=== PATIENT | female | born 1965 | race Caucasian/White ===

== ENCOUNTER 2016-08-15 03:37 | Emergency (ER) | payer BC ==
[2016-08-15] MEDS ORDERED: Morphine INJ* 2 MG/ML 1 ML SYRINGE IV ONE (04:03)
[2016-08-15] MEDS ORDERED: Ondansetron INJ* 2 MG/ML VIAL IV ONE (04:03)
[2016-08-15] MEDS ORDERED: NS 0.9% 1000 ML* 1,000 ML IV ONE (04:03)
[2016-08-15 04:51] LABS: Hematocrit 38 % (35-47); Hemoglobin 12.8 g/dl (12.0-16.0); Mean Corpuscular HGB Conc 33 g/dl (31-36); Mean Corpuscular Hemoglobin 31 pg (27-31); Mean Corpuscular Volume 94 fL (80-97); Mean Platelet Volume 8 um3 (7.4-10.4); Red Cell Distribution Width 13 % (10.5-15); White Blood Count 5.6 10^3/ul (3.5-10.8)
[2016-08-15 05:02] LABS: Albumin 4.5 g/dL (3.2-5.2); BUN/Creatinine Ratio 22.2 (8-20); C Reactive Protein 1.03 mg/L (< 5.00); Calcium 9.1 mg/dL (8.6-10.3); EGFR African American 95.5 (>60); EGFR Non-African American 74.3 (>60); Globulin 2.4 g/dL (2-4); Magnesium 2.1 mg/dL (1.9-2.7); Potassium 3.2 mmol/L (3.5-5.0); Total Bilirubin 0.3 mg/dL (0.2-1.0); Total Protein 6.9 g/dL (6.4-8.9)
[2016-08-15 05:30] VITALS: BP 116/78
[2016-08-15 05:30] LABS: Urine Bilirubin Negative (Negative); Urine Glucose Negative (Negative); Urine Nitrite Negative (Negative)
== END 2016-08-15 05:31 | disposition home or self-care (01) ==
LOC: ED 03:37
DX: R11.2 Nausea with vomiting, unspecified (principal); R51 Headache; Z98.890 Other specified postprocedural states
CPT/HCPCS: 36415; 80053; 81003; 83605; 83690; 83735; 84484; 85025; 86140; 93005; 96374; 96375; 99282; J2270; J2405

== ENCOUNTER 2017-05-02 15:07 | Observation (INO) | payer OTHER ==
[2017-05-02 15:44] LABS: ABS Basophils 0.1 10^3/ul (0-0.2); ABS Eosinophils 0.1 10^3/ul (0-0.6); ABS Lymphocytes 2.4 10^3/ul (1.0-4.8); ABS Monocytes 0.5 10^3/ul (0-0.8); ABS Neutrophils 3.7 10^3/ul (1.5-7.7); ABS Nucleated RBC 0 10^3/ul; Eosinophil % 1.9 % (0-6); Hematocrit 42 % (35-47); Hemoglobin 14.3 g/dl (12.0-16.0); Lymphocyte % 35.8 % (25-47); Mean Corpuscular HGB Conc 34 g/dl (31-36); Mean Corpuscular Hemoglobin 32 pg (27-31); Mean Corpuscular Volume 93 fL (80-97); Mean Platelet Volume 7 um3 (7.4-10.4); Nucleated Red Blood Cells % 0.1; Platelet Count 321 10^3/ul (150-450); Red Blood Count 4.49 10^6/ul (4.0-5.4); Red Cell Distribution Width 12 % (10.5-15); White Blood Count 6.8 10^3/ul (3.5-10.8)
[2017-05-02 16:00] LABS: INR 0.94 (0.77-1.02)
[2017-05-02 16:13] LABS: EGFR Non-African American 63.1 (>60)
--- NOTE | 2017-05-02 16:35 | RAD ---
HISTORY: Shortness of breath and chest pain COMPARISONS: August 29, 2015 VIEWS: 4: Frontal dual-energy and lateral views of the chest. FINDINGS: CARDIOMEDIASTINAL SILHOUETTE: The cardiomediastinal silhouette is normal. HARRIET: The harriet are normal. PLEURA: The costophrenic angles are sharp. No pleural abnormalities are noted. LUNG PARENCHYMA: There is hyperinflation with flattening of the diaphragm and expansion of the retrosternal airspace. ABDOMEN: The upper abdomen is clear. There is no subphrenic gas. BONES AND SOFT TISSUES: No bone or soft tissue abnormalities are noted. OTHER: None. IMPRESSION: HYPERINFLATION, WHICH CAN BE SEEN WITH COPD OR REACTIVE AIRWAY DISEASE. NO ACTIVE CARDIOPULMONARY DISEASE.
[2017-05-02] MEDS ORDERED: Iohexol 350* (CONTRAST) 500 ML MDV IV ONE (17:00)
--- NOTE | 2017-05-02 17:22 | ECHO ---
Patient: AYAN ESOCBAR [facility] Rec#: [id number] : 1965 Date: 05/02/2017 Age: 51y Height: 167.64 cm / 66.0 in Weight: 75.75 kg / 167.0 lbs Sex: F BSA: 1.85 Room#: ED 3 Admit Date#: 05/02/2017 Type: Outpatient Referring: Luis Centeno Reading: Roc Verma MD Laboratory Clerk: Fallon Cuellar RDCS,RDMS CC: Ryne Bhandari MD Transthoracic Echocardiogram Indication: CP BP: 118/86 HR: 79 Rhythm: NSR Findings History: HLD, smoker, PE Technical Comments: The study quality is good. Left Ventricle: The left ventricular chamber size is normal. There is no left ventricular hypertrophy. Left ventricular systolic function is at the lower limits of normal. The estimated ejection fraction is 50-55%. There is no consistent Doppler evidence of clinically significant diastolic dysfunction. Left Atrium: The left atrial chamber size is normal. Right Ventricle: The right ventricle wall thickness is mildly increased. The right ventricular cavity size is normal. The right ventricular global systolic function is normal. Right Atrium: The right atrial cavity size is normal. Aortic Valve: The aortic valve is trileaflet. There is no evidence of aortic valve thickening. Systolic excursion of the aortic valve is normal. There is no evidence of aortic regurgitation. There is no evidence of aortic stenosis. Mitral Valve: The mitral valve leaflets appear normal. There is a trace of mitral regurgitation. There is no evidence of mitral stenosis. Tricuspid Valve: The tricuspid valve leaflets are normal. There is mild tricuspid regurgitation. No pulmonary hypertension is noted. Pulmonic Valve: The pulmonic valve appears normal. There is trace to mild pulmonic regurgitation.dual jets. Pericardium: There is no significant pericardial effusion. Aorta: The aortic root appears normal. There is no dilatation of the aortic arch. Pulmonary Artery: The main pulmonary artery appears normal. Venous: The inferior vena cava appears normal in size. There is a greater than 50% respiratory change in the inferior vena cava dimension. Summary: There was not any prior study for comparison. Conclusions Left ventricular systolic function is at the lower limits of normal. The estimated ejection fraction is 50-55%. There is a trace of mitral regurgitation. There is mild tricuspid regurgitation. There is trace to mild pulmonic regurgitation.dual jets. The right ventricle wall thickness is mildly increased. The right ventricular global systolic function is normal. Measurements Name Value Normal Range RVIDd (AP) 2D 3.1 cm (0.9 - 2.6) RVDdMajor (2D) 2.4 cm (2.2 - 4.4) RAd ISD 4CH 4.3 cm (3.4 - 4.9) RA (A4C)W 3 cm (2.9 - 4.6) IVSd (2D) 0.8 cm (0.6 - 1) LVPWd (2D) 1 cm (0.6 - 1) LVIDd (2D) 4.4 cm (3.6 - 5.4) LVIDs (2D) 3.4 cm - LV FS (2D) 23 % (25 - 45) Aortic Annulus 2.2 cm (1.4 - 2.6) Ao root diameter (2D) 2.9 cm (2.1 - 3.5) Ascending Ao 2.9 cm (2.1 - 3.4) Aortic arch 2.9 cm (1.8 - 3.4) LA dimension (AP) 2D 3.1 cm (2.3 - 3.8) LAd ISD 4CH 4.3 cm (2.9 - 5.3) LA ISD 4CH W 3.6 cm (2.5 - 4.5) Name Value Normal Range LA ESV SP 4CH (A/L) 30.75 ml - LA ESV SP 2CH (A/L) 46.74 ml - LA ESV BP (A/L) 39.19 ml - LA ESV BP (A/L) index 21 ml/m2 - LA ESV SP 4CH (MOD) 28.37 ml - LA ESV SP 2CH (MOD) 42.75 ml - Name Value Normal Range MV E-wave Vmax 0.5 m/sec - MV deceleration time 161 msec - MV A-wave Vmax 0.6 m/sec - MV E:A ratio 0.8 ratio - LV septal e' Vmax 0.07 m/sec - LV lateral e' Vmax 0.08 m/sec - LV E:e' septal ratio 7 ratio - LV E:e' lateral ratio 6 ratio - Name Value Normal Range AV Vmax 1.2 m/sec - AV VTI 23 cm - AV peak gradient 6 mmHg - AV mean gradient 3.2 mmHg - LVOT Vmax 0.8 m/sec - LVOT VTI 15 cm - LVOT peak gradient 2.6 mmHg - LVOT mean gradient 1.3 mmHg - MARY Vmax 0.9 m/sec - Name Value Normal Range TR Vmax 2.3 m/sec - TR peak gradient 21 mmHg - RAP 3 mmHg - RVSP 24 mmHg - IVC diameter 1.6 cm - Name Value Normal Range PV Vmax 0.5 m/sec - PV peak gradient 1 mmHg -
[2017-05-02] MEDS ORDERED: Acetaminophen TAB* 325 MG PO PRN (17:38)
--- NOTE | 2017-05-02 17:38 | RAD ---
HISTORY: Shortness of breath COMPARISONS: October 02, 2007 TECHNIQUE: Multiple contiguous axial CT scans of the chest were obtained after the administration of nonionic intravenous contrast, timed to the pulmonary arterial phase of contrast enhancement.. Coronal and sagittal multiplanar reformations are also submitted for review. FINDINGS: NECK AND THYROID: The lower neck and thyroid are unremarkable. CHEST WALL: There is no lower cervical, axillary, or supraclavicular lymphadenopathy by size criteria. HEART AND PERICARDIUM: The heart is unremarkable. AORTA AND PULMONARY VASCULATURE: There is no pulmonary arterial filling defect to suggest pulmonary embolism. There is no linear filling defect within the aorta to suggest aortic dissection. MEDIASTINUM: There is no mediastinal lymphadenopathy by size criteria. HARRIET: There is no hilar lymphadenopathy by size criteria. AIRWAY AND ESOPHAGUS: The airway is unremarkable, without endobronchial filling defect. The esophagus is grossly normal. LUNG PARENCHYMA: There is stable minimal lingular pleuroparenchymal scarring. PLEURA: No pleural abnormalities are noted. UPPER ABDOMEN: The upper abdomen is unremarkable. BONES AND SOFT TISSUES: The patient is status post anterior cervical fusion. Mild degenerative changes are noted. OTHER: None. IMPRESSION: NO PULMONARY ARTERIAL FILLING DEFECT TO SUGGEST PULMONARY EMBOLISM.
[2017-05-02] MEDS ORDERED: Albuterol HFA INHALER* 8 gm MDI INH PRN (17:44)
[2017-05-02 20:10] LABS: Urine Appearance Clear; Urine Blood Negative (Negative); Urine Color Straw; Urine Ketones Negative (Negative); Urine Protein Negative (Negative); Urine Specific Gravity 1.054 (1.010-1.030); Urine Urobilinogen Negative (Negative)
[2017-05-02] MEDS: Heparin VIAL(*) 5000 UNITS/ML VIAL (FIVE THOUSAND) SUBCUT SCH (21:26)
--- NOTE | 2017-05-02 22:31 | HP ---
CC: Dr. Mccarty; Dr. Sharif * HISTORY AND PHYSICAL: DATE OF ADMISSION: 05/02/17 PRIMARY CARE PROVIDER: Dr. Mccarty. CHIEF COMPLAINT: Shortness of breath. HISTORY OF PRESENT ILLNESS: Consuelo Riley is a 51-year-old female with history of asthma for which she does not use any treatment, although she has prescribed albuterol on a p.r.n. basis. The patient stated that she had mild upper respiratory infection syndrome for approximately a week 3 or 4 weeks ago. Ever since then, she had been mildly short of breath. She stated that her shortness of breath was worsened with exercise approximately a week ago. She was seen by her primary care provider and recommended a followup with Cardiology. She saw Dr. Sharif today and stated that she had exertional chest pain a week ago. She also complained of shortness of breath with exertion. At that point, Dr. Sharif addressed the patient to the emergency department for evaluation and possibility of admission. Here her workup is unremarkable and she is going to be placed on overnight observation with a stress test in the morning. PAST MEDICAL HISTORY: 1. History of asthma. 2. History of PE in the past. 3. History of thoracic spondylosis. 4. History of lower back surgery in 2002. 5. History of C-spine surgery in [address] with a [address] plate in place. MEDICATIONS: Include: 1. Albuterol on a p.r.n. basis. 2. Estroven Multi-Symptom. ALLERGIES: No known drug allergies. FAMILY HISTORY: Positive for father who of pneumonia at the age of 64 and mother who of lung cancer at the age of 63. SOCIAL HISTORY: The patient has history of 30 years of smoking a pack and a half a day and she quit 8 years ago. She denies any drug use and stated that she rarely uses alcohol. 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 She is and her is her surrogate. REVIEW OF SYSTEMS: Please see history of present illness. The patient stated that her shortness of breath occurred when she was moping the floor a week ago. She also stated that that is when her chest pain developed, although she is more vague with describing the chest pain and the duration of it. She stated that she has had problems with shortness of breath with exertion ever since and it is problematic for her to walk up a flight of stairs. All the remaining 12 systems were reviewed with the patient and were otherwise negative. PHYSICAL EXAMINATION GENERAL: The patient is a very pleasant 51-year-old male, who is in no acute distress. Alert, awake, and oriented x3. VITAL SIGNS: Blood pressure of 129/78, heart rate of 74 and regular, respiratory rate 15, oxygen saturation 99% on room air, temperature 98.7. HEENT: Head: Atraumatic, normocephalic. Eyes: Pupils are equal, reactive to light and accommodation. Oropharynx clear. Mucosa moist. NECK: Supple. No JVD. No bruits bilaterally. RESPIRATORY: Clear to auscultation bilaterally. CARDIOVASCULAR: Regular rate and rhythm. No murmur. ABDOMEN: Soft and nontender. Bowel sounds are present in all 4 quadrants. EXTREMITIES: There is no edema. Pulses +2 bilaterally. There is no clubbing or cyanosis. NEURO EVALUATION: Speech clear. Cranial nerves II through XII are grossly intact. Motor strength is 5/5 bilaterally. SKIN: On evaluation of the skin, no ecchymotic areas or rashes noted. DIAGNOSTIC STUDIES/LAB DATA: Laboratory data showed white blood cell count of 6.8, hemoglobin of 14.3, hematocrit of 42, and platelet count of 321,000. Sodium of 139, potassium 4.1, chloride 103, carbon dioxide 29, BUN 17, creatinine 0.93. Liver function tests unremarkable. Troponin of 0. Brain natriuretic peptide was 25. CT angiogram of the chest showed no PE. There was stable minimal lingular parenchymal scarring. The patient's transthoracic echocardiogram showed EF of 50% 55% with trace mitral regurgitation, mild tricuspid regurgitation and the right ventricle wall thickness that is mildly increased. The patient's EKG showed normal sinus rhythm with a heart rate of 71 beats per minute with no ST changes. ASSESSMENT AND PLAN: 1. Exertional chest pain and dyspnea for the past 7 days. The patient is going to be placed on overnight observation. So far, her cardiac workup had been unremarkable. We will follow up with the patient's troponins and a treadmill stress test is going to be ordered in the morning. 2. In regards to the patient's asthma, the patient is not in exacerbation. Albuterol is going to be continued as previously taken. 3. For DVT prophylaxis, the patient is going to be placed on heparin subcutaneous. 5. The patient's code status is full and her surrogate is her . TIME SPENT: Approximately 65 minutes was spent on admission of this patient, more than half of that time was spent [id number] with the patient during the interview and physical exam. [id number]/[facility] #: [id number] ALIE
[2017-05-03 05:27] VITALS: BP 102/62
[2017-05-03] MEDS: Heparin VIAL(*) 5000 UNITS/ML VIAL (FIVE THOUSAND) SUBCUT SCH (05:44)
[2017-05-03 06:47] LABS: ABS Basophils 0.1 10^3/ul (0-0.2); ABS Eosinophils 0.2 10^3/ul (0-0.6); ABS Lymphocytes 2.9 10^3/ul (1.0-4.8); ABS Monocytes 0.6 10^3/ul (0-0.8); ABS Neutrophils 3.1 10^3/ul (1.5-7.7); ABS Nucleated RBC 0 10^3/ul; Eosinophil % 2.7 % (0-6); Hematocrit 40 % (35-47); Hemoglobin 13.6 g/dl (12.0-16.0); Lymphocyte % 43.2 % (25-47); Mean Corpuscular HGB Conc 34 g/dl (31-36); Mean Corpuscular Hemoglobin 32 pg (27-31); Mean Corpuscular Volume 93 fL (80-97); Mean Platelet Volume 7 um3 (7.4-10.4); Nucleated Red Blood Cells % 0; Platelet Count 316 10^3/ul (150-450); Red Blood Count 4.27 10^6/ul (4.0-5.4); Red Cell Distribution Width 12 % (10.5-15); White Blood Count 6.8 10^3/ul (3.5-10.8)
--- NOTE | 2017-05-03 11:26 | RAD ---
Edited for charges. INDICATION: Chest pain. COMPARISON: There are no prior studies available for comparison. Technique: A single day myocardial perfusion stress study was performed. Initially a resting study was performed. The patient was given an intravenous injection of 10.9 mCi of technetium 99m tetrofosmin and and the heart was imaged in multiple projections. The patient returned later in the day and under the direction of Dr. Verma, the patient was exercised to a peak heart rate of 157 beats per minute which was 95% of the maximum predicted heart rate. Subsequently the patient was given intravenous injection of 25.7 mCi of technetium 99m tetrofosmin and the heart was imaged in multiple projections. Images were reconstructed in the axial, sagittal and coronal planes and in a 3- D format. FINDINGS: There appears to be normal wall motion and myocardial thickening. The left ventricular ejection fraction was calculated to be 68%. No significant focal myocardial perfusion defects are seen. There is no evidence for infarct or ischemia. IMPRESSION: NO EVIDENCE FOR INFARCT OR ISCHEMIA. ASSESSMENT: Low risk. Based on imaging criteria from ACC/AHA 2002 Guideline Update for the Management of Patients With Chronic Stable Angina Table 23. Noninvasive Risk Stratification. MTDD
--- NOTE | 2017-05-04 08:41 | ED ---
Francisco Foster Thomas, scribed for Luis Centeno MD on 05/02/17 at 1612 . Shortness of Breath - HPI Summary HPI Summary: The patient is a 51 year old female sent to the emergency department by Dr. Sharif for evaluation of continuous shortness of breath and chest pain. The patient is unable to ambulate a few steps without becoming short of breath. Today, she becomes short of breath by speaking. Therefore, the patient went to Dr. Reyes office, who referred her to the emergency department. The patient has a history of pulmonary embolism in the past. So, Dr. Sharif sent the patient to rule out a pulmonary embolism. - History of Current Complaint Chief Complaint: EDShortnessOfBreath Time Seen by Provider: 05/02/17 15:10 Hx Obtained From: Patient Onset/Duration: Still Present Timing: Constant Current Severity: Moderate Dyspnea At: Rest Aggrevating Factors: Other - Talking, walking Alleviating Factors: Nothing - Allergy/Home Medications Allergies/Adverse Reactions: Allergies Allergy/AdvReac Type Severity Reaction Status Date / Time No Known Allergies Allergy Verified 06/07/12 09:04 Home Medications: Home Medications Soy Isofla/Blk Cohosh/Mag Bark [Estroven 155 mg Capsule] 1 cap PO DAILY [History Confirmed 05/02/17] PMH/Surg Hx/FS Hx/Imm Hx Cardiovascular History: Reports: Hx Hypercholesterolemia Denies: Hx Pacemaker/ICD Respiratory History: Reports: Hx Asthma, Hx Pulmonary Embolism, Other Respiratory Problems/Disorders - PULMONARY EMBOLISM 2001 Sensory History: Denies: Hx Hearing Aid Psychiatric History: Denies: Hx Panic Disorder - Surgical History Surgery Procedure, Year, and Place: LUMBAR - LAMINECTOMY- ABOUT 15 YRS. CSP - FUSION - 2006. C SECTION. HYSTERECTOMY & BLADDER. SKIN GRAFTING. TOE NAIL REMOVED Infectious Disease History: No Infectious Disease History: Denies: Traveled Outside the [place] in Last 30 Days - Family History Known Family History: Negative: Cardiac Disease, Hypertension, Diabetes - Social History Alcohol Use: None Substance Use Type: Reports: None Smoking Status (MU): Former Smoker Review of Systems Positive: Chest Pain Positive: Shortness Of Breath All Other Systems Reviewed And Are Negative: Yes Physical Exam - Summary Physical Exam Summary: VITAL SIGNS: Reviewed. GENERAL: Patient is a well-developed and nourished female who is lying comfortable in the stretcher. Patient is not in any acute respiratory distress. HEAD AND FACE: No signs of trauma. No ecchymosis, hematomas or skull depressions. No sinus tenderness. EYES: PERRLA, EOMI x 2, No injected conjunctiva, no nystagmus. EARS: Hearing grossly intact. Ear canals and tympanic membranes are within normal limits. MOUTH: Oropharynx within normal limits. NECK: Supple, trachea is midline, no adenopathy, no JVD, no carotid bruit, no c- spine tenderness, neck with full ROM. CHEST: Symmetric, no tenderness at palpation LUNGS: Clear to auscultation bilaterally. No wheezing or crackles. CVS: Regular rate and rhythm, S1 and S2 present, no murmurs or gallops appreciated. ABDOMEN: Soft, non-tender. No signs of distention. No rebound no guarding, and no masses palpated. Bowel sounds are normal. EXTREMITIES: FROM in all major joints, no edema, no cyanosis or clubbing. NEURO: Alert and oriented x 3. No acute neurological deficits. Speech is normal and follows commands. SKIN: Dry and warm Triage Information Reviewed: Yes Vital Signs On Initial Exam: Initial Vitals Temp Pulse Resp BP Pulse Ox 98.7 F 74 18 119/78 100 05/02/17 15:14 05/02/17 15:14 05/02/17 15:14 05/02/17 15:14 05/02/17 15:14 Vital Signs Reviewed: Yes Diagnostics - Vital Signs Vital Signs Temp Pulse Resp BP Pulse Ox 05/02/17 15:40 100 05/02/17 15:30 86 21 118/86 100 05/02/17 15:14 98.7 F 74 18 119/78 100 - Laboratory Lab Results: Lab Results 05/02/17 05/02/17 05/02/17 Range/Units 15:35 15:35 15:35 WBC 6.8 (3.5-10.8) 10^3/ul RBC 4.49 (4.0-5.4) 10^6/ul Hgb 14.3 (12.0-16.0) g/dl Hct 42 (35-47) % MCV 93 (80-97) fL MCH 32 H (27-31) pg MCHC 34 (31-36) g/dl RDW 12 (10.5-15) % Plt Count 321 (150-450) 10^3/ul MPV 7 L (7.4-10.4) um3 Neut % (Auto) 53.7 (38-83) % Lymph % (Auto) 35.8 (25-47) % Fillmore % (Auto) 7.8 (1-9) % Eos % (Auto) 1.9 (0-6) % Baso % (Auto) 0.8 (0-2) % Absolute Neuts (auto) 3.7 (1.5-7.7) 10^3/ul Absolute Lymphs (auto) 2.4 (1.0-4.8) 10^3/ul Absolute Monos (auto) 0.5 (0-0.8) 10^3/ul Absolute Eos (auto) 0.1 (0-0.6) 10^3/ul Absolute Basos (auto) 0.1 (0-0.2) 10^3/ul Absolute Nucleated RBC 0 10^3/ul Nucleated RBC % 0.1 INR (Anticoag Therapy) 0.94 (0.77-1.02) APTT 31.6 (26.0-36.3) seconds D-Dimer, Quantitative < 200 (Less Than 230) ng/mL Sodium Pending Potassium Pending Chloride Pending Carbon Dioxide Pending Anion Gap Pending BUN Pending Creatinine Pending Est GFR ( Amer) Pending Est GFR (Non-Af Amer) Pending BUN/Creatinine Ratio Pending Glucose Pending Calcium Pending Total Bilirubin Pending AST Pending ALT Pending Alkaline Phosphatase Pending Total Creatine Kinase Pending CK-MB (CK-2) 1.3 (0.6-6.3) ng/mL Troponin I 0.00 (<0.04) ng/mL C-Reactive Protein Pending B-Natriuretic Peptide ( - 100) pg/mL Total Protein Pending Albumin Pending Globulin Pending Albumin/Globulin Ratio Pending Salicylates Pending 05/02/17 Range/Units 15:35 WBC (3.5-10.8) 10^3/ul RBC (4.0-5.4) 10^6/ul Hgb (12.0-16.0) g/dl Hct (35-47) % MCV (80-97) fL MCH (27-31) pg MCHC (31-36) g/dl RDW (10.5-15) % Plt Count (150-450) 10^3/ul MPV (7.4-10.4) um3 Neut % (Auto) (38-83) % Lymph % (Auto) (25-47) % Fillmore % (Auto) (1-9) % Eos % (Auto) (0-6) % Baso % (Auto) (0-2) % Absolute Neuts (auto) (1.5-7.7) 10^3/ul Absolute Lymphs (auto) (1.0-4.8) 10^3/ul Absolute Monos (auto) (0-0.8) 10^3/ul Absolute Eos (auto) (0-0.6) 10^3/ul Absolute Basos (auto) (0-0.2) 10^3/ul Absolute Nucleated RBC 10^3/ul Nucleated RBC % INR (Anticoag Therapy) (0.77-1.02) APTT (26.0-36.3) seconds D-Dimer, Quantitative (Less Than 230) ng/mL Sodium Potassium Chloride Carbon Dioxide Anion Gap BUN Creatinine Est GFR ( Amer) Est GFR (Non-Af Amer) BUN/Creatinine Ratio Glucose Calcium Total Bilirubin AST ALT Alkaline Phosphatase Total Creatine Kinase CK-MB (CK-2) (0.6-6.3) ng/mL Troponin I (<0.04) ng/mL C-Reactive Protein B-Natriuretic Peptide 25 ( - 100) pg/mL Total Protein Albumin Globulin Albumin/Globulin Ratio Salicylates Result Diagrams: 05/03/17 05:41 05/03/17 05:41 Lab Statement: Any lab studies that have been ordered have been reviewed, and results considered in the medical decision making process. - Radiology CXR Xray Interpretation: No Acute Changes - HYPERINFLATION, WHICH CAN BE SEEN WITH COPD OR REACTIVE AIRWAY DISEASE. NO ACTIVE CARDIOPULMONARY DISEASE. Dr. Centeno has reviwed this report. Radiology Interpretation Completed By: Radiologist - CT CTA Chest/Thorax CT Interpretation: No Acute Changes - NO PULMONARY ARTERIAL FILLING DEFECT TO SUGGEST PULMONARY EMBOLISM. Dr. Centeno has reviewed this report. CT Interpretation Completed By: Radiologist - EKG 15:18 Cardiac Rate: NL EKG Rhythm: Sinus Rhythm - at 71 BPM EKG Interpretation: No ST elevations. Normal axis. - Additional Comments Diagnostic Additional Comments: Transthoracic echocardiogram. Interpreted by radiologist. Impression: "Left ventricular systolic function is at the lower limits of normal. The estimated ejection fraction is 50-55%. There is a trace of mitral regurgitation. There is mild tricuspid regurgitation. There is trace to mild pulmonic regurgitation.dual jets. The right ventricle wall thickness is mildly increased. The right ventricular global systolic function is normal." Dr. Centeno has reviewed this report. Course/Dx - Course Assessment/Plan: The patient is a 51 year old female sent to the emergency department by Dr. Sharif for evaluation of continuous shortness of breath and chest pain. The patient is unable to ambulate a few steps without becoming short of breath. Today, she becomes short of breath by speaking. Therefore, the patient went to Dr. Reyes office, who referred her to the emergency department. The patient has a history of pulmonary embolism in the past. So, Dr. Sharif sent the patient to rule out a pulmonary embolism. Test results are without significant abnormality. D-Dimer is negative. CXR shows HYPERINFLATION, WHICH CAN BE SEEN WITH COPD OR REACTIVE AIRWAY DISEASE. NO ACTIVE CARDIOPULMONARY DISEASE. The patient continued to have shortness of breath and chest pain. I discussed the case with Dr. Sharif, who recommends admission to [facility]. He also requests ordering an echocardiogram. I discussed the case with Dr. Gray, who also requests CTA Chest because of her history of pulmonary embolism. Therefore, Dr. Gray admits the patient to her services. She will follow up on the CTA Chest and echocardiogram. The patient is hemodynamically stable and alert and oriented x3. - Diagnoses Differential Diagnosis/HQI/PQRI: Positive: Asthma, Bronchitis, CHF, Chest Wall Pain, Pneumonia, Pulmonary Embolism, Pulmonary Edema Provider Diagnoses: Dyspnea, Chest pain - Physician Notifications Discussed Care of Patient With: Angelita Gray Time Discussed With Above Provider: 18:12 Instructed by Provider To: Other - I also consulted with Dr. Sharif, who recommends admission and requests an echocardiogram. Discharge - Discharge Plan Condition: Improved Disposition: ADMITTED TO [facility] The documentation as recorded by the Francisco sutherland Thomas accurately reflects the service I personally performed and the decisions made by me, Luis Centeno MD.
--- NOTE | 2017-05-04 12:04 | DS ---
CC: Dr. Sharif; Dr. Mccarty * DISCHARGE SUMMARY: DATE OF ADMISSION: 05/02/17 DATE OF DISCHARGE: 05/03/17 PRIMARY CARE PROVIDER: Dr. Mccarty. COIL CONNECTOR: Dr. Sharif. DISCHARGE DIAGNOSES: Dyspnea on exertion and episode of chest pain a week prior with low probability cardiac stress test and negative CTA for PE. SECONDARY DIAGNOSIS: History of asthma. MEDICATIONS AT DISCHARGE: Include Estroven 1 tablet daily. LABORATORY DATA/DIAGNOSTIC STUDIES: Laboratory data and studies performed during the hospital stay include: On 05/03/17, white blood cell count was 6.8, hemoglobin of 13.6, hematocrit of 40, and platelets 316. Sodium of 139, potassium 3.6, chloride 104, carbon dioxide 26, BUN 14, creatinine 0.81. Lipid profile showed triglycerides of 152, cholesterol of 161 , LDL of 91, and HDL of 39. Troponin was 0 throughout the patient's hospital stay. The patient's cardiac stress test, the exercise portion showed negative EKG portion of the stress, but blunted heart rate and blood pressure responses as well as rare PVCs during exercise. The nuclear portion of the stress test showed no evidence of ischemia and EF of 68%. CT angiogram of the chest obtained on 05/02/17 showed "no pulmonary arterial filling defect to suggest pulmonary embolism." Transthoracic echocardiogram on 05/02/17 showed EF of 50% to 55% with trace mitral regurgitation and mild tricuspid regurgitation and mild pulmonary regurgitation. HOSPITALIZATION COURSE: Consuelo Riley is a 51-year-old female with history of asthma for which she had used albuterol in the past, but currently not using , who presented complaining of dyspnea on exertion and episode of chest pain a week prior. For further details of patient's hospitalization, please see history and physical dictated by myself on admission. Briefly, the patient was placed on overnight observation. Her workup included angiogram of the chest that was unremarkable as well as transthoracic echocardiogram with results as above. Cardiac stress test was obtained and showed good exercise tolerance. The patient exercised for almost 15 minutes with rare PVCs. The patient states that she actually feels better after the treadmill exercise and she did not complain of dyspnea when exercising on treadmill today. At this point, the etiology of the patient's dyspnea on exertion and chest pain was not established. I suspect that if problems with exercise tolerance recur, pulmonary consult may be needed. The patient has a history of over 30-pack- year smoking and could have exercise-induced asthma. Physical exam at discharge is unchanged from admission. At discharge, patient is recommended to follow up with her primary care provider in approximately 4 to 7days, and with Dr. Sharif as needed. Please note that this is a short summary of the patient's hospitalization. Please refer to further medical record for details. [id number]/[facility] #: [id number] [facility]OSPITALPhilipp
== END 2017-05-03 13:30 | disposition home or self-care (01) ==
LOC: ED 15:07 → MEDTELE 17:38
PROVIDERS: ADMIT Internal Medicine; ATTEND Internal Medicine
DX: R06.00 Dyspnea, unspecified (principal); R07.9 Chest pain, unspecified; Z87.09 Personal history of other diseases of the respiratory system
CPT/HCPCS: 36415; 71046; 71275; 78452; 80048; 80053; 80061; 80076; 80329; 81003; 81015; 82550; 82553; 83880; 84484; 85025; 85379; 85610; 85730; 86140; 87077; 87086; 87186; 93005; 93017; 93306; 99283; A9270-GY; A9502; G0378; G0480; Q9967

== ENCOUNTER 2017-09-26 09:38 | Day surgery (SDC) | payer SELFPAY ==
[~2017-09-26 09:38] MED LIST: Buffered Lidocaine 0.9% SYRIN* 5 ML/SYR SYRINGE INTRADERM ONE; Sodium Citrate/Citric Acid* 15 ML UDC PO ONE
[2017-09-26] MEDS ORDERED: Sodium Bicarbonate 8.4% SYR* 10 ML SYRINGE ONE (09:48)
[2017-09-26] MEDS ORDERED: Lidocaine 2% PF* 10 ML AMP ONE (09:48)
[2017-09-26] MEDS ORDERED: EPINEPHRINE 1 MG/ML 1 ML VIAL ONE (09:49)
[2017-09-26] MEDS ORDERED: Ondansetron INJ* 2 MG/ML VIAL ONE (09:55)
[2017-09-26] MEDS ORDERED: Heparin VIAL(*) 5000 UNITS/ML VIAL (FIVE THOUSAND) ONE (09:55)
[2017-09-26] MEDS ORDERED: Dexamethasone IV* 4 MG/ML 1 ML (4 MG) ONE (09:56)
[2017-09-26] MEDS ORDERED: Scopolamine 1.5 mg* PATCH ONE (09:56)
[2017-09-26] MEDS ORDERED: ceFAZolin 2 GM PREMIX (*) 2 GM/50 ML BAG IVPB ONE (09:56)
[2017-09-26] MEDS ORDERED: Sodium Citrate/Citric Acid* 15 ML UDC ONE (10:20)
[2017-09-26] MEDS ORDERED: Lidocain 1% EPI 1:100,000 * 30 ML MDV ONE (11:16)
[2017-09-26] MEDS ORDERED: Naloxone* 0.4 MG/ML 1 ML VIAL IV PRN ×2 (11:36→13:30)
[2017-09-26] MEDS ORDERED: Midazolam* 1 MG/ML 2 ML VIAL (2 MG) ONE ×3 (11:42→12:46)
[2017-09-26] MEDS ORDERED: fentaNYL* 50 MCG/ML 2 ML VIAL (100 MCG VIAL) ONE ×2 (11:43→12:03)
[2017-09-26] MEDS ORDERED: KETAMINE HCL* 50 MG/ML 10 ML VIAL ONE (12:04)
[2017-09-26] MEDS ORDERED: Propofol* 10 MG/ML 20 ML BTL IV PUSH ONE (12:21)
[2017-09-26 14:09] VITALS: BP 109/76
== END 2017-09-26 14:30 | disposition home or self-care (01) ==
LOC: OREAST 09:38
PROVIDERS: ATTEND Plastic Surgery
DX: Z41.1 Encounter for cosmetic surgery (principal); Z87.891 Personal history of nicotine dependence; M19.90 Unspecified osteoarthritis, unspecified site; Z86.711 Personal history of pulmonary embolism; M54.9 Dorsalgia, unspecified
CPT/HCPCS: A9270-GY; J0690; J1100; J1644; J2001; J2250; J2405; J2704; J3010

== ENCOUNTER 2019-07-10 11:56 | Observation (INO) | payer BC ==
--- OUTSIDE RECORDS SUMMARY | 2019-07-10 12:09 | XMS REPORT | Continuity of Care Document ---
:1965 External Reference #:[id number] Author Name Ryne Bhandari M.D. 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 Onset: 04/20/2011 Malaise and fatigue Ryen Bhandari M.D. Onset: 04/20/2011 Depressive disorder Ryne Bhandari M.D. Onset: 04/20/2011 Anxiety state Ryne Bhandari M.D. Onset: 05/07/2011 Chest pain Ryne Bhandari M.D. Onset: 05/07/2011 Lipoma of skin Ryne Bhandari M.D. Onset: 05/07/2011 Arthralgia of the pelvic region and thigh Ryne Bhandari M.D. Onset: 2012 Neck pain Ryne Bhandari M.D. Onset: 06/13/2012 Backache Ryne Bhandari M.D. Onset: 06/13/2012 Low back pain Ryne Bhandari M.D. Onset: 06/13/2012 Abnormal weight gain Ryne Bhandari M.D. Onset: 12/12/2012 Overweight Ryne Bhandari M.D. Onset: 01/12/2013 Arthralgia of the lower leg Ryne Bhandari M.D. Onset: 08/26/2014 Acute upper respiratory infection, unspecified Ryne Bhandari M.D. Onset: Dyspnea Ryne Bhandari M.D. Onset: 12/24/2016 Tachycardia Ryne Bhandari M.D. Onset: 12/24/2016 Chronic pain syndrome Ryne Bhandari M.D. Onset: 06/30/2019 Social History Type Date Description Comments Sex Unknown Tobacco Use Start: Unknown Nonsmoker Smoking Status Reviewed: 01/17/18 Nonsmoker ETOH Use Denies alcohol use Tobacco Use Start: Unknown End: Patient is a former smoker Unknown Exercise Type/Frequency Exercises regularly Allergies, Adverse Reactions, Alerts Description No Known Drug Allergies Medications Active Medications SIG Qnty Indications Ordering Provider Date Citalopram 1-2 by mouth 60tabs Ryne Bhandari, 04/13/2019 Hydrobromide daily. M.D. 20mg Tablets Proair HFA 1-2 puffs every 18units Ryne Bhandari, 09/05/2015 108(90Base) 4 hours as M.D. mcg/Act Aerosol needed Hydrocodone-Acetaminop 1 by mouth 180tabs Ryne Bhandari, 01/21/2014 hen every 4 hours M.D. 5-325mg Tablets as needed pain Estroven Maximum 2 to 3 tabs PO Unknown Strength qd Tablets Hyoscyamine Sulfate qid Unknown 0.125mg Tablets Ondansetron HCL 1-2 by mouth Unknown 4mg every 4-6h as Tablets needed nausea Medications Administered in Office Medication SIG Qnty Indications Ordering Provider Date Injection Subcutaneous Or Nurse, Nurse 05/07/2002 Intramuscular Injection Immunizations CPT Code Status Date Vaccine Lot # [id number] Given 10/15/2011 Tdap Tetanus, W Pertussis [id number] Given 06/01/2004 Td Immunization, For Use In Individuals 7 Years Or Older [id number] Given 06/01/2004 Td Immunization, For Use In Individuals 7 Years Or Older Vital Signs Date Vital Result Comment 10/27/2018 7:08pm BP Systolic 110 mmHg BP Diastolic 68 mmHg Heart Rate 80 /min Body Temperature 98.1 F Respiratory Rate 17 /min Height 68 inches 5'8" Weight 185.00 lb BMI (Body Mass Index) 28.1 kg/m2 10/17/2018 3:31pm BP Systolic 120 mmHg BP Diastolic 60 mmHg Heart Rate 66 /min Body Temperature 97.9 F Respiratory Rate 16 /min Height 68 inches 5'8" Weight 188.25 lb BMI (Body Mass Index) 28.6 kg/m2 Results Description No Information Available Procedures Date Code Description Status 08/14/2016 18820519 Colonoscopy Completed Medical Devices Description No Information Available Encounters Type Date Location Provider Dx Diagnosis Office Visit 06/30/2019 3:00p Main Office Ryne Bhandari M.D. M54.5 Low back pain G89.4 Chronic pain syndrome F41.1 Generalized anxiety disorder Assessments Date Code Description Provider 06/30/2019 M54.5 Low back pain Ryne Bhandari M.D. 06/30/2019 G89.4 Chronic pain syndrome Ryne Bhandari M.D. 06/30/2019 F41.1 Generalized anxiety disorder Ryne Bhandari M.D. Plan of Treatment 06/30/2019 - Ryne Bhandari M.D.M54.5 Low back painComments:discussed physical therapy or chiropractic. She notes that her will crack her back and that is as good as she has gotten from a chiropractor. Continue the hydrocodone as takenFollow up:Followup:. (Follow up) Followup: In 6 months.G89.4 Chronic pain eavrrubvL29.1 Generalized anxiety disorderComments:Continue citalopram and ok to wean down to 1/2 tab when the coronavirus epidemic has settled down and there is less stress Functional Status Description No Information Available Mental Status Description No Information Available Referrals Description No Information Available
--- NOTE | 2019-07-10 12:22 | ED ---
Neurological HPI - HPI Summary HPI Summary: 53 year old F presenting to [facility] with a chief complaint of a 30 minute episode of being confused and unable to understand what she was reading or say words correctly at 20:30 last night. Patient reports that prior to the episode she had right sided visual disturbances and head pain. She also reports high blood pressure, sharp left groin pain onset at 14:00 today, and chest pain. The patient rates the current pain 0/10 in severity. Symptoms aggravated by nothing. Symptoms alleviated by nothing. Patient denies any fever, chills, erythema of eyes, sore throat, shortness of breath, cough, abdominal pain, nausea/vomiting, dysuria, hematuria, myalgia, edema, rash, or dizziness. The patient contacted her PCP and was advised to come to the emergency department for further evaluation. Medication list reviewed. Allergy list reviewed. - History of Current Complaint Chief Complaint: EDHeadache Stated Complaint: POSS BLOOD CLOT PER PT Time Seen by Provider: 07/10/19 12:05 Hx Obtained From: Patient Onset/Duration: Sudden Onset Current Severity: None Pain Intensity: 0 Pain Scale Used: 0-10 Numeric Character: Confusion Aggravating: Nothing Alleviating: Nothing Associated Signs and Symptoms: Positive: Visual Changes, Headache, Confusion, Chest Pain. Negative: Dizziness, Nausea/Vomiting, Fever, Shortness of Breath - Allergy/Home Medications Allergies/Adverse Reactions: Allergies Allergy/AdvReac Type Severity Reaction Status Date / Time No Known Allergies Allergy Verified 07/10/19 12:02 Home Medications: Home Medications [id number] Es (Nf) [Excedrin Extra Strength 250-250-65 mg (NF)] 2 tab PO Q6H PRN 07/10/19 [History Confirmed 07/10/19] Calcium Carbonate CHEW TAB* [Tums*] 500 mg PO BID PRN 07/10/19 [History Confirmed 07/10/19] Citalopram TAB* [CeleXA TAB*] 20 mg PO DAILY 07/10/19 [History Confirmed ] Hydrocodone/Acetaminophen [Hydrocodone-Acetamin 5-325 mg] 1 tab PO BID PRN 07/09 [History Confirmed 07/10/19] PMH/Surg Hx/FS Hx/Imm Hx Endocrine/Hematology History: Denies: Hx Diabetes Cardiovascular History: Reports: Hx Hypercholesterolemia Denies: Hx Hypertension, Hx Pacemaker/ICD Respiratory History: Reports: Hx Asthma, Hx Pulmonary Embolism - 20 YEARS AGO RELATED TO DOUBLE DOSE OF CONTROL AND HEAVY SMOKING, Other Respiratory Problems/Disorders - PULMONARY EMBOLISM 20 YEARS AGO History: Denies: Hx Renal Disease Musculoskeletal History: Reports: Hx Back Problems Sensory History: Denies: Hx Contacts or Glasses, Hx Hearing Aid Opthamlomology History: Denies: Hx Contacts or Glasses Psychiatric History: Reports: Hx Anxiety - HX OF Denies: Hx Panic Disorder - Surgical History Surgical History: Yes Surgery Procedure, Year, and Place: LUMBAR - LAMINECTOMY- ABOUT 15 YRS, [facility] [place]. CSP - FUSION - 2006, [facility] [place]. [place] C SECTION, [facility] [place]. HYSTERECTOMY & BLADDER, 20-25 YEARS AGO, [facility] [place]. 1979 SKIN GRAFTING RIGHT HAND, [facility] [place]. TOE NAIL REMOVED Hx Anesthesia Reactions: No Infectious Disease History: No Infectious Disease History: Denies: Hx Clostridium Difficile, Hx Hepatitis, Hx Human Immunodeficiency Virus (HIV), Traveled Outside the [place] in Last 30 Days - Family History Known Family History: Negative: Cardiac Disease, Hypertension, Diabetes - Social History Alcohol Use: None Substance Use Type: Reports: None Hx Tobacco Use: Yes Smoking Status (MU): Former Smoker Type: Cigarettes Amount Used/How Often: 1.5 PPD Have You Smoked in the Last Year: No Review of Systems Negative: Fever, Chills Positive: Other - Visual disturbances. Negative: Erythema Negative: Sore Throat Positive: Chest Pain, Other - High blood pressure Negative: Shortness Of Breath, Cough Negative: Abdominal Pain, Vomiting, Nausea Positive: other - Groin pain. Negative: dysuria, hematuria Negative: Myalgia, Edema Negative: Rash Neurological/Mental Status: Negative - Dizziness, Other - Confused Positive: Headache All Other Systems Reviewed And Are Negative: Yes Physical Exam - Summary Physical Exam Summary: Constitutional: Well-developed, Well-nourished, Alert. (-) Distressed Skin: Warm, Dry HENT: Normocephalic; Atraumatic Eyes: Conjunctiva normal Neck: Musculoskeletal ROM normal neck. (-) JVD, (-) Stridor, (-) Tracheal deviation Cardio: Rhythm regular, rate normal, Heart sounds normal; Intact distal pulses; The pedal pulses are 2+ and symmetric. Radial pulses are 2+ and symmetric. (-) Murmur Pulmonary/Chest wall: Effort normal. (-) Respiratory distress, (-) Wheezes, (-) Rales Abd: Soft. (-) Tenderness, (-) Distension, (-) Guarding, (-) Rebound Musculoskeletal: (-) Edema Lymph: (-) Cervical adenopathy Neuro: Alert, Oriented x3, Strength normal, Cranial nerves II-XII are grossly intact. (-) Dysmetria, (-) Nystagmus, (-) Ataxia by finger to nose testing, (-) Sensory deficit, GCS 15. Psych: Mood and affect Normal Triage Information Reviewed: Yes Vital Signs On Initial Exam: Initial Vitals Temp Pulse Resp BP Pulse Ox 97.7 F 70 19 131/78 94 07/10/19 11:57 07/10/19 11:57 07/10/19 11:57 07/10/19 11:57 07/10/19 11:57 Vital Signs Reviewed: Yes - [place] Coma Scale Best Eye Response: 4 - Spontaneous Best Motor Response: 6 - Obeys Commands Best Verbal Response: 5 - Oriented Coma Scale Total: 15 Procedures - Sedation Patient Received Moderate/Deep Sedation with Procedure: No Diagnostics - Vital Signs Vital Signs Temp Pulse Resp BP Pulse Ox 07/10/19 11:57 97.7 F 70 19 131/78 94 - Laboratory Result Diagrams: 07/10/19 12:55 07/10/19 12:55 Lab Statement: Any lab studies that have been ordered have been reviewed, and results considered in the medical decision making process. - Radiology Chest x-ray Radiology Interpretation Completed By: Radiologist Summary of Radiographic Findings: HYPERINFLATION. NO ACTIVE CARDIOPULMONARY DISEASE. ED physician has reviewed this report. - CT Head CTA CT Interpretation Completed By: Radiologist Summary of CT Findings: 1. NO INTERNAL CAROTID ARTERY STENOSIS BY NASCET CRITERIA. 2. NO ANEURYSM, VASCULAR MALFORMATION, OCCLUSION, OR STENOSIS OF THE VISUALIZED INTRACRANIAL CIRCULATION. ED physician has reviewed this report. - EKG 12:31 Cardiac Rate: Bradycardia - 54 BPM EKG Rhythm: Sinus Bradycardia Summary of EKG Findings: T-Wave inversions in leads V3-V4, no STEMI. ED physician has reviewed and interpreted this EKG. Course/Dx - Course Course Of Treatment: 53 year old F presenting to [facility] with a chief complaint of a 30 minute episode of being confused and unable to understand what she was reading or say words correctly at 20:30 last night. Patient reports that prior to the episode she had right sided visual disturbances and head pain. She also reports high blood pressure, sharp left groin pain onset at 14:00 today, and chest pain. Physical exam findings reveal no abnormalities, GCS 15. An EKG reveals sinus bradycardia rate of 54 BPM, T-Wave inversions in leads V3-V4, no STEMI. CXR reveals, per radiologist, HYPERINFLATION. NO ACTIVE CARDIOPULMONARY DISEASE. Head CTA reveals, per radiologist, 1. NO INTERNAL CAROTID ARTERY STENOSIS BY NASCET CRITERIA. 2. NO ANEURYSM, VASCULAR MALFORMATION, OCCLUSION, OR STENOSIS OF THE VISUALIZED INTRACRANIAL CIRCULATION. Laboratory results with no significant abnormalities except for an MCH of 32. In the ED course, the patient was given Aspirin, normal saline, Lipitor, and Plavix. We discussed patient care with Dr. Hernandez at 13:13. Discussed with Dr. Kraus at 15:07 who accepts the patient for admission. Patient will be admitted. The patient is agreeable with this plan. - Differential Dx Differential Diagnoses Neuro: Positive: Cerebrovascular Accident - Atypical migraine, hypertensive crisis, Transient Ischemic Attack, Other - Diagnoses Provider Diagnoses: TIA (transient ischemic attack) - Physician Notifications Discussed Care Of Patient With: Cayetano Hernandez Time Discussed With Above Provider: 13:13 Instructed by Provider To: Other - Discussed with Dr. Hernandez the concern for a TIA, he will come to see the patient. [15:07] Discussed with Dr. Kraus who accepts the patient for admission. - Critical Care Time Critical Care Statement: Critical care time is provided exclusive of any time spent performing procedures. Discharge ED - Sign-Out/Discharge Documenting (check all that apply): Patient Departure - Discharge Plan Condition: Stable Disposition: ADMITTED TO [facility] Referrals: Ryne Bhandari MD [Primary Care Provider] - - Attestation Statements Document Initiated by Scribe: Yes Documenting Scribe: Irlanda Miller Provider For Whom Scribe is Documenting (Include Credential): Westley Butts MD Scribe Attestation: Irlanda Foster, scribed for Westley Butts MD on 07/10/19 at 6113. Status of Scribe Document: Ready
[2019-07-10] MEDS ORDERED: NS 0.9% 1000 ML** 1,000 ML IV ONE (12:26)
[2019-07-10 13:18] LABS: Activated Partial Thrombo Time 27.9 seconds (26.0-38.0); INR 1.01 (0.82-1.09)
[2019-07-10 13:29] LABS: Albumin 4.6 g/dL (3.2-5.2); Albumin/Globulin Ratio 1.6 (1-3); Calcium 9.5 mg/dL (8.6-10.3); EGFR African American 90.1 (>60); EGFR Non-African American 74.5 (>60); Globulin 2.9 g/dL (2-4); HDL Cholesterol 51.2 mg/dL; Potassium 3.8 mmol/L (3.5-5.0); Total Bilirubin 0.5 mg/dL (0.2-1.0); Total Protein 7.5 g/dL (6.4-8.9)
[2019-07-10] MEDS ORDERED: Iohexol 350* (CONTRAST) 500 ML MDV IV ONE (13:40)
[2019-07-10 14:22] LABS: ABS Eosinophils 0.1 10^3/ul (0-0.6); ABS Lymphocytes 1.4 10^3/ul (1.0-4.8); ABS Monocytes 0.4 10^3/ul (0-0.8); ABS Neutrophils 1.8 10^3/ul (1.5-7.7); Eosinophil % 2.6 %; Hematocrit 42 % (35-47); Hemoglobin 14.2 g/dL (12.0-16.0); Lymphocyte % 37.4 %; Mean Corpuscular HGB Conc 34 g/dL (31-36); Mean Corpuscular Hemoglobin 32 pg (27-31); Mean Corpuscular Volume 93 fL (80-97); Mean Platelet Volume 8.3 fL (7.4-10.4); Platelet Count 248 10^3/uL (150-450); Red Blood Count 4.47 10^6 /uL (3.70-4.87); Red Cell Distribution Width 13 % (10-15); White Blood Count 3.6 10^3/uL (3.5-10.8)
[2019-07-10] MEDS ORDERED: Clopidogrel TAB* 75 MG PO ONE (14:51)
[2019-07-10] MEDS ORDERED: Aspirin 81 mg CHEW TAB* 81 MG TAB.CHEW PO ONE (14:51)
[2019-07-10] MEDS ORDERED: Calcium Carbonate CHEW TAB* 500 MG (TUMS) PO PRN (15:19)
[2019-07-10 16:12] LABS: TSH (Thyroid Stimulating Horm) 2.67 mcIU/mL (0.34-5.60)
--- NOTE | 2019-07-10 17:38 | CONS ---
NEUROLOGY CONSULTATION NOTE: DATE OF CONSULT: 07/10/19 CONSULTING PROVIDER: Dr. Butts. REASON FOR CONSULT: Transient word-finding difficulty. CHIEF COMPLAINT: [place] confused. HISTORY OF PRESENT ILLNESS: Mrs. Consuelo Riley is a 53-year-old female who has history of unprovoked pulmonary embolism 20 years ago and a former smoker, who presented to [facility] ED due to transient episode of confusion yesterday, on 07/09/19. The patient was sitting and reading at approximately 7: 30 p.m. at night when she developed a right-sided unilateral headache and kaleidoscope vision. She got up and took an Excedrin and continued to read. She still was having trouble with her headache. She called her because she felt confused. She was trying to read the words, but could not process the words right. She could not put the words together. She was having trouble communicating with her . This lasted approximately 30 minutes. She had no associated symptoms of weakness, double vision, slurred speech, or numbness. She has never had any similar symptoms in the past. She does not have any history of migraine headaches. She does have history of tension headaches for which she takes Excedrin Migraine once in a while. NIH stroke scale is 0. She is currently asymptomatic. She came to the hospital today because her daughters who are in the medical field urged her to get further evaluation. The patient was exposed to ticks 2 weeks ago and noticed that she had 2 ticks underneath her right armpit. She also has 4 pets. PAST MEDICAL HISTORY: 1. Pulmonary embolism where she was treated with anticoagulation therapy for 9 months. 2. Collapsed lung. 3. Former tobacco use. 4. x3. 5. Two miscarriages. 6. Two disk surgeries in the lumbar and cervical spine. 7. Total abdominal hysterectomy. FAMILY HISTORY: No family history of stroke or seizures. Her daughter has history of melanoma. Her maternal aunt had breast cancer. SOCIAL HISTORY: The patient is . She is self-employed. 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 She has 5 children. She was a former smoker for more than 25 years, 1-1/2 packs per day. She quit smoking 15 years ago. She denied any alcohol abuse. REVIEW OF SYSTEMS: A 14-point review of systems was obtained and otherwise negative except for what is mentioned in the HPI. The patient denied any history of rash. PHYSICAL EXAMINATION: Vital Signs: Temperature of 97.7, pulse of 84, respiratory rate of 22, oxygen saturation 95%, blood pressure 108/78. General: Well- nourished, well-developed female, in no acute distress. She has clean oral cavity with extremely white teeth. Eyes: Conjunctivae/corneas are clear. Neck is supple and symmetrical with no carotid bruits. Cardiovascular: Regular rate and rhythm with normal S1, S2. Chest: Clear to auscultation bilaterally with no wheezing or rhonchi. Extremities: Normal range of motion. No edema or cyanosis. No hammertoes or high arches. Skin: No skin lesions or laceration. No maculopapular rash apparent underneath her armpits. Psych: Affect is broad. Normal mood. Easy to establish rapport. Neurological Examination: Mental status: Awake, alert, oriented to person, place, time, and general circumstances. Speech and language were assessed and found to be normal. She has no abnormality in repetition or comprehension. Cranial Nerves : Pupils are equal, round, and reactive to light, extraocular muscles are intact, there is normal sensation in the face bilaterally, no facial asymmetry. Tongue is symmetrical and midline with no atrophy or fasciculation. Motor Examination: 5/5 strength in upper and lower extremities symmetrically. Normal tone throughout. Sensation is intact to light touch throughout. Vibration is intact at the toes bilaterally. Coordination: Normal finger-to- nose and [id number]-[id number] testing. Gait: Normal stance. No ataxia. LABS AND IMAGING STUDIES: WBCs 3.6, hemoglobin of 14.2, hematocrit of 42, platelet count of 248. INR is 1.01. Sodium 138, potassium 3.8, chloride of 104 , BUN of 12, creatinine of 0.8. AST is 25, ALT of 22. LDL is 175. Total cholesterol is 255. Vitamin B12, TSH, and hemoglobin A1c are pending. CT of the head and CTA head and neck show no evidence of acute intracranial abnormality. There is no large vessel occlusion or dissection seen. ASSESSMENT: Mrs. Riley is a 53-year-old female who presents with transient symptoms of word-finding difficulty and confusion on 07/09/2019. The patient is currently asymptomatic. NIH stroke scale is 0. ABCD2 score is 2. 1. Transient ischemic attack to the left MCA vascular distribution. She is not a candidate for IV TPA or mechanical thrombectomy given that her NIH stroke scale was 0. Other differential diagnosis may include complex migraine headaches. The patient will need admission for further evaluation. Her risk factors are minimal with former history of tobacco use. The fact that she has history of miscarriages and unexplained PE does raise a suspicion for an underlying antiphospholipid syndrome. The MRI will be helpful in this case to see if she has any small cortical and subcortical white matter changes or if she has small asymptomatic stroke. RECOMMENDATIONS: Admit for observation. I ordered an MRI of the brain without contrast to evaluate for any embolic strokes, demyelinating disease, or other structural abnormality that would explain her transient symptoms. I ordered a transthoracic echo with bubble study to evaluate for PFO or left atrial thrombus. Neuro checks every 4 hours. No need for PT/OT/MANAGER AUTOMOTIVE since the patient is currently asymptomatic. Please make sure she gets a swallow evaluation done at bedside. Please given her an aspirin 81 mg and a Plavix 75 mg daily. Continue this combination of therapy for 21 days, then discontinue Plavix. I started her on atorvastatin 40 mg daily. I have ordered TSH, vitamin B12, Lyme titer, and hemoglobin A1c. I ordered the Lyme screen because she was exposed to ticks just a few weeks ago, though we are going to make sure she does not have underlying Lyme disease. I anticipate if all the workup is complete, then the patient can be discharged tomorrow. Evaluation for a hypercoagulable panel can be performed as an outpatient. We are going to have a problem in obtaining the echo if it is not done today as the next time our information technology consultant is available would be Saturday. I discussed the plan with Dr. Kraus who will be admitting the patient. Please keep her blood pressure within normotensive range. Please evaluate for any potential bradycardia, which can be symptomatic. She has mild bradycardia during the monitoring today on telemetry. Please continue telemetry. I will follow up with the results. [id number]/[facility] #: [id number] ALIE
--- NOTE | 2019-07-10 17:38 | HP ---
CC: Dr. Bhandari* HISTORY AND PHYSICAL: DATE OF ADMISSION: 07/10/19 TIME OF ADMISSION: 4:00 p.m. CHIEF COMPLAINT: "Kaleidoscope vision." HISTORY OF PRESENT ILLNESS: This is a 53-year-old woman with history of hyperlipidemia and a provoked PE, who presents to the emergency department with complaints of visual changes that happened last night. She had been reading in bed around 8 p.m. and noticed that her vision changed on the right side. She described her vision as Kaleidoscope-like only on the right and she has developed a slight headache, so she took some Excedrin. She noticed that she could not recognize words in her book and she called her to the bedroom to show him and she attempted to read words loud to him and she felt like she could not get the words out. She rested in bed and did not sleep well overnight , but then this morning, she felt like her symptoms had resolved. She was concerned about these symptoms, so she came to the emergency department. Overall, the symptoms lasted approximately 2-1/2 hours. She feels completely back to normal at this time and has no complaints. PAST MEDICAL HISTORY: PE 10 years ago, which occurred when she was using tobacco and taking oral contraceptives, hyperlipidemia. PAST SURGICAL HISTORY: She had a hysterectomy and back surgery. HOME MEDICATIONS: 1. Excedrin as needed for migraines. 2. Hydrocodone/acetaminophen b.i.d. p.r.n. pain. 3. Tums b.i.d. p.r.n. indigestion. 4. Celexa 20 mg daily. ALLERGIES: No known drug allergies. FAMILY HISTORY: Her mom, dad, and sister all had lung cancer. SOCIAL HISTORY: She lives with her . She is a former smoker. She quit smoking 15 years ago. She occasionally drinks alcohol. No other drugs. REVIEW OF SYSTEMS: As per the HPI. Remainder of the review of systems is negative. PHYSICAL EXAMINATION GENERAL: Alert, well appearing middle-aged woman, resting, in no acute distress. VITAL SIGNS: Temperature 97.7, heart rate 64, respiratory rate 17, pulse ox 99 % on room air, blood pressure 115/79. HEENT: Pupils equal, round, reactive to light. Oral mucosa is moist. No nystagmus. NECK: No JVP. No adenopathy. LUNGS: Her lungs are clear bilaterally. CHEST: She is in a regular rate and rhythm with no murmurs. ABDOMEN: Soft, nontender, nondistended. EXTREMITIES: No edema, rashes or ulcers. NEUROLOGIC: Her face is symmetric. She has no nystagmus. Her extraocular muscles are intact. Her strength is 5/5 in all extremities. Her DTRs are 2+ bilaterally. Her speech is clear, articulate, and accurate. DIAGNOSTIC STUDIES/LAB DATA: White blood cells 3.6, hemoglobin 14.2, platelets 248. INR 1.01. Sodium 138, potassium 3.8, chloride 104, bicarb 26, BUN 12, creatinine 0.80, glucose 85. TSH 2.67. LDL 175, HDL 51, troponin 0.00. Head CTA shows no internal carotid artery stenosis by NASCET criteria. No aneurysm, vascular malformation, occlusion or stenosis of the visualized intracranial circulation. EKG: Sinus bradycardia, normal axis, normal intervals. No ST changes. She has T- wave inversions in V3 and V4. ASSESSMENT AND PLAN: This is a 53-year-old woman with a history of hyperlipidemia, who presents to the emergency department with 2-1/2 hours of visual changes and receptive and expressive aphasia last night that have resolved by today. 1. Transient ischemic attack. I believe her symptoms are consistent with a transient ischemic attack. She has no other metabolic, infectious or neurologic explanations for this, and she has returned to baseline at this time. Her risk factors include hyperlipidemia, having been a former smoker. She will be admitted for OBV and we will get an MRI of her brain and transthoracic echocardiogram with bubble study. I am starting her on aspirin and Plavix and statin. She expresses good understanding of the disease process and the plan and agrees to admission. 2. Hyperlipidemia. Start moderate-potency statins. 3. DVT prophylaxis: Hold at this time, the patient is ambulatory. 4. Diet: Unrestricted. [id number]/[facility] #: [id number] MTDD
[2019-07-10] MEDS: HYDROcodone/ACETAMIN 5-325 MG* 1 TAB PO PRN (20:42)
[2019-07-10] MEDS: Atorvastatin* 40 MG TAB PO SCH (20:43)
[2019-07-11 07:08] LABS: ABS Eosinophils 0.2 10^3/ul (0-0.6); ABS Lymphocytes 2.2 10^3/ul (1.0-4.8); ABS Monocytes 0.4 10^3/ul (0-0.8); ABS Neutrophils 1.5 10^3/ul (1.5-7.7); Eosinophil % 3.6 %; Hematocrit 38 % (35-47); Lymphocyte % 51.6 %; Mean Corpuscular HGB Conc 35 g/dL (31-36); Mean Corpuscular Hemoglobin 32 pg (27-31); Mean Corpuscular Volume 93 fL (80-97); Mean Platelet Volume 7.5 fL (7.4-10.4); Nucleated Red Blood Cells % 0.1; Platelet Count 219 10^3/uL (150-450); Red Blood Count 4.05 10^6 /uL (3.70-4.87); Red Cell Distribution Width 13 % (10-15); White Blood Count 4.3 10^3/uL (3.5-10.8)
[2019-07-11 07:29] LABS: BUN/Creatinine Ratio 12.2 (8-20); EGFR African American 78.7 (>60)
[2019-07-11] MEDS: Clopidogrel TAB* 75 MG PO SCH (08:14)
[2019-07-11] MEDS: Citalopram TAB* 20 MG PO SCH (08:14)
[2019-07-11] MEDS: Aspirin 81 mg CHEW TAB* 81 MG TAB.CHEW PO SCH (08:14)
[2019-07-11] MEDS: HYDROcodone/ACETAMIN 5-325 MG* 1 TAB PO PRN (11:47)
[2019-07-11] MEDS ORDERED: Magnesium Sulfate 2 GM IV* 2 GM/50 ML BAG IVPB ONE (16:34)
--- NOTE | 2019-07-11 16:43 | PN ---
Subjective Date of Service: 07/11/19 Length of Stay: 1 Days Neurology is following for TIA and headaches. Interval History: She rested well. She is getting a lot of "personal" time here and she likes it. She had a headache this morning, 7/10 in severity, unilateral, right temporal pain that lasted for 2-3 hours. She took her own Excedrin because she was unable to wait for the nurse to give her a pain medication. She apparently endorsed frequent headaches today, when she told me yesterday that she has only few headaches a year. Now she stated that she has 3-4 headaches a month, or sometimes even more. She has her own pain medication in her purse that she takes at least 10-12 tablets a week for headaches. She has been doing this for years. She does feel nauseated and has mild photophobia. She denied any symptoms of confusion or word finding difficulty today. Her brother apparently has a PFO and a stroke in the past. Pending the TTE. Review of Systems: Denied CP, SOB, or palpitations. Objective Active Medications: Hydrocodone Bitart/Acetaminophen ([place] 5-325 Tab*) 1 tab PO BID PRN PRN Reason: PAIN - MODERATE Last Admin: 07/11/19 11:47 Dose: 1 tab Aspirin (Aspirin 81 Mg Chew Tab*) 81 mg PO DAILY [facility] Last Admin: 07/11/19 08:14 Dose: 81 mg Atorvastatin Calcium (Lipitor*) 40 mg PO 2100 [facility] Last Admin: 07/10/19 20:43 Dose: 40 mg Calcium Carbonate (Tums*) 500 mg PO BID PRN PRN Reason: HEARTBURN Citalopram Hydrobromide (Celexa Tab*) 20 mg PO DAILY [facility] Last Admin: 07/11/19 08:14 Dose: 20 mg Clopidogrel Bisulfate (Plavix Tab*) 75 mg PO DAILY [facility] Last Admin: 07/11/19 08:14 Dose: 75 mg Magnesium Sulfate (Magnesium Sulfate 2 Gm Iv*) 2 gm in 50 mls @ 50 mls/hr IVPB ONCE ONE Stop: 07/11/19 17:33 Vital Signs 07/10/19 07/10/19 07/10/19 16:49 17:00 17:13 Temperature 98.4 F Pulse Rate 58 62 60 Respiratory 22 18 18 Rate Blood Pressure 117/76 117/76 (mmHg) O2 Sat by Pulse 96 96 96 Oximetry 07/10/19 07/10/19 07/10/19 17:50 19:30 20:00 Temperature 97 F 97.8 F Pulse Rate 64 60 Respiratory 18 20 18 Rate Blood Pressure 122/72 111/67 (mmHg) O2 Sat by Pulse 100 99 98 Oximetry 07/10/19 07/10/19 07/10/19 20:42 23:27 23:30 Temperature 97.7 F Pulse Rate 60 Respiratory 18 20 18 Rate Blood Pressure 111/67 (mmHg) O2 Sat by Pulse 98 Oximetry 07/11/19 07/11/19 07/11/19 03:40 03:45 07:15 Temperature 97.3 F 97.6 F Pulse Rate 62 57 Respiratory 18 20 Rate Blood Pressure 94/64 105/60 102/71 (mmHg) O2 Sat by Pulse 96 100 Oximetry 07/11/19 07/11/19 11:30 11:47 Temperature 97.8 F Pulse Rate 48 Respiratory 16 18 Rate Blood Pressure 121/68 (mmHg) O2 Sat by Pulse 97 Oximetry Intake and Output Last 24 Hours 07/09/19 07/10/19 07/11/19 07/12/19 06:59 06:59 06:59 06:59 Intake Total 1300 520 Output Total 0 600 Balance 1300 -80 Weight 182 lb 3.2 oz Intake: IV Fluids 1000 Oral 300 520 Output: Urine 0 600 Other: # Voids 0 4 Oxygen Devices in Use Now: None Neurology Exam: General: Well nourished, well developed, and in no acute distress HEENT: Normocephelic/atraumatic, sclera anicteric, mucous membranes moist Neck: Supple Chest: Clear to auscultation bilaterally Cardiovascular: Regular rate and rhythm without murmurs, rubs, gallops Abdomen: Soft, non-tender/non-distended Extremities: No clubbing, cyanosis, or edema Neurological Findings: Awake, alert, and oriented to person, place, and time. Speech: fluent without dysarthria, repetition intact Cranial Nerve: PERRL, EOM intact, VFF, no nystagmus, face symmetric bilaterally , facial sensation intact, hearing intact to finger rub bilaterally, palate elevates symmetrically, tongue midline, SCM and Trapezius s/s. Motor: s/s throughout, proximal and distal extremities x4 tone/bulk normal Sensation: intact to LT/PP bilaterally upper and lower extremities Deep Tendon Reflex: 2+ symmetric in the upper/lower extremities, Babinski - down going Finger to nose, rapid alternating movements intact without tremor, no dysdiadochokinesia Gait: intact with good arm swing and stride Result Diagrams: 07/11/19 06:36 07/11/19 06:36 Diagnostic Imaging: MRI brain without contrast completed on 07/09: no intracranial lesion identified. Assessment/Plan Mrs. Consuelo Riley is a 53-year-old female with PE 20 years ago, miscarriages, who presented transient symptoms of confusion and aphasia. 1. Left MCA TIA. Resolved. Symptoms lasted for less than 30 minutes. NIHSS: 0. mRS: 0. No need for PT/OT/SUPERVISOR TYPE BAR AND SEGMENT since she has recovered completely. MRI is negative. Tolerating the aspirin and Plavix. Tolerating atorvastatin. Plan: - Aspirin and Plavix for 21 days total. Discontinue Plavix on 07/30/2019. - Continue atorvastatin 40 mg nightly - Pending TTE. If positive for PFO + atrial septal aneurysm, refer to cardiology. If only positive for PFO, then monitor for recurrence of symptoms since she was not on antiplatelet therapy and did not have a stroke. - TIA education completed - Can be discharged tomorrow and will follow-up with neurology. I will arrange a follow-up appointment with our staff. - Pending Lyme screen 2. Migraine headache without aura. She also has a component of analgesic rebound headaches. Recommend magnesium sulfate 2 g IV x 1 now (ordered). Continue magnesium oxide 400 mg and Riboflavin 100 mg daily for 3-4 weeks. If that combination do not work, and she still continues to have frequent headaches , then we will consider Topamax therapy. Encouraged her to keep a headache diary. 3. Dyslipidemia. On atorvastatin 40 mg nightly. I will sign off. Please contact me for any questions.
--- NOTE | 2019-07-11 17:45 | PN ---
Subjective Date of Service: 07/11/19 Interval History: resolution of visual symptoms.denies any complaints Objective Active Medications: Hydrocodone Bitart/Acetaminophen ([place] 5-325 Tab*) 1 tab PO BID PRN PRN Reason: PAIN - MODERATE Last Admin: 07/11/19 11:47 Dose: 1 tab Aspirin (Aspirin 81 Mg Chew Tab*) 81 mg PO DAILY [facility] Last Admin: 07/11/19 08:14 Dose: 81 mg Atorvastatin Calcium (Lipitor*) 40 mg PO 2100 [facility] Last Admin: 07/10/19 20:43 Dose: 40 mg Calcium Carbonate (Tums*) 500 mg PO BID PRN PRN Reason: HEARTBURN Citalopram Hydrobromide (Celexa Tab*) 20 mg PO DAILY [facility] Last Admin: 07/11/19 08:14 Dose: 20 mg Clopidogrel Bisulfate (Plavix Tab*) 75 mg PO DAILY [facility] Last Admin: 07/11/19 08:14 Dose: 75 mg Magnesium Sulfate (Magnesium Sulfate 2 Gm Iv*) 2 gm in 50 mls @ 50 mls/hr IVPB ONCE ONE Stop: 07/11/19 17:33 Vital Signs - 8 hr 07/11/19 07/11/19 11:30 11:47 Temperature 97.8 F Pulse Rate 48 Respiratory 16 18 Rate Blood Pressure 121/68 (mmHg) O2 Sat by Pulse 97 Oximetry Oxygen Devices in Use Now: None Eyes: No Scleral Icterus Ears/Nose/Mouth/Throat: NL Teeth, Lips, Gums Respiratory: Symmetrical Chest Expansion and Respiratory Effort Cardiovascular: NL Sounds; No Murmurs; No JVD Abdominal: NL Sounds; No Tenderness; No Distention Neurological: Alert and Oriented x 3, NL Muscle Strength and Tone Result Diagrams: 07/11/19 06:36 07/11/19 06:36 Diagnostic Imaging: MRI brain without contrast completed on 07/09: no intracranial lesion identified. Assess/Plan/Problems-Billing Assessment: - Patient Problems (1) TIA (transient ischemic attack) Current Visit: Yes Status: Acute Code(s): G45.9 - TRANSIENT CEREBRAL ISCHEMIC ATTACK, UNSPECIFIED SNOMED Code(s): 383679498 Comment: Pic c/w TIA Continue aspirin MRI and CT head reviewed H/o PE and multiple clots and fam h/o clots and brother with stroke at 35 Hypercoagulable w/u as outpt. Echo with Bubble study pending
[2019-07-11] MEDS: Atorvastatin* 40 MG TAB PO SCH (20:19)
[2019-07-12] MEDS: Citalopram TAB* 20 MG PO SCH (08:10)
[2019-07-12] MEDS: Clopidogrel TAB* 75 MG PO SCH (08:10)
[2019-07-12] MEDS: Aspirin 81 mg CHEW TAB* 81 MG TAB.CHEW PO SCH (08:10)
[2019-07-12 08:16] LABS: ABS Eosinophils 0.1 10^3/ul (0-0.6); ABS Lymphocytes 1.9 10^3/ul (1.0-4.8); ABS Monocytes 0.3 10^3/ul (0-0.8); ABS Neutrophils 1.6 10^3/ul (1.5-7.7); Eosinophil % 2.2 %; Hematocrit 40 % (35-47); Hemoglobin 13.7 g/dL (12.0-16.0); Lymphocyte % 47.4 %; Mean Corpuscular HGB Conc 35 g/dL (31-36); Mean Corpuscular Hemoglobin 32 pg (27-31); Mean Corpuscular Volume 93 fL (80-97); Mean Platelet Volume 7.6 fL (7.4-10.4); Platelet Count 238 10^3/uL (150-450); Red Blood Count 4.23 10^6 /uL (3.70-4.87); Red Cell Distribution Width 13 % (10-15)
[2019-07-12 08:32] LABS: BUN/Creatinine Ratio 15.7 (8-20); Calcium 9.4 mg/dL (8.6-10.3); EGFR African American 86.4 (>60); EGFR Non-African American 71.4 (>60); Potassium 3.9 mmol/L (3.5-5.0)
--- NOTE | 2019-07-12 11:14 | ECHO ---
*[facility]* [place] [address] Fax #: [phone] Limited Transthoracic Echocardiogram Patient: Consuelo Riley : 1965 Study Date: 07/12/2019 Age: 53 Gender: F HR: 50 bpm Height: 66 in /167.6 cm BSA: 1.99 m^2 Weight: 182 lb /82.7 kg BMI: 29.4 kg/m^2 *Machine Bobbin Winder: Nicky Escobedo *Referring Physician: * Kamla Sarkar *Reading Physician: * Yahir Valentin MD Indications: TIA. History: Risk factors: Hx of PE. Dyslipidemia. Conclusions Summary: - Limited echocardiogram ordered for assessment of patent kiran ovale and/or atrial septal defect. - Left ventricle: Systolic function appears normal. The estimated ejection fraction is 55-60%. - Right ventricle: Systolic function appears normal. - Atrial septum: No patent foramen ovale nor atrial septal defect noted on agitated saline infusion. Study data: Transthoracic echocardiogram, limited study. Procedure: Transthoracic echocardiography was performed. Image quality was good. A bubble study was performed. Location: Bedside. Patient status: Inpatient. Patient room number: 442-02. Rhythm: Bradycardia. Findings Left ventricle: Systolic function appears normal. The estimated ejection fraction is 55-60%. Wall motion is normal; there are no regional wall motion abnormalities. Atrial septum: No patent foramen ovale nor atrial septal defect noted on agitated saline infusion with and without Valsalva maneuver. Prepared and electronically signed by Yahir Valentin MD 07/12/2019 11:13
[2019-07-12 11:49] VITALS: BP 129/70
--- NOTE | 2019-07-12 18:43 | DS ---
DISCHARGE SUMMARY: DATE OF ADMISSION: 07/10/19 DATE OF DISCHARGE: 07/12/19 PRIMARY DIAGNOSES: 1. Transient ischemic attack. 2. Dyslipidemia. 3. Migraine headache without aura. SECONDARY DIAGNOSES: 1. Pulmonary embolus 10 years ago. The patient was on oral contraceptives at that time and was smoking. 2. Hyperlipidemia. FAMILY HISTORY: Blood clots and also a brother who had stroke when he was young in his 30s. HOSPITAL COURSE: A 53-year-old female with history of hyperlipidemia and pulmonary embolus, came into the ER with visual complaints. She was reading and had a vision change in her right eye like a kaleidoscope with headache, also had some difficulty getting words out. Her symptoms lasted about 2-1/2 hours. The patient came into the ER for further evaluation. The patient had a head CTA, which showed no internal carotid artery stenosis. It showed no aneurysm, vascular malformation, occlusion, or stenosis of the visualized intracranial circulation. The patient also had a brain MRI, which did not show any intracranial lesion. The patient had a chest x-ray, which showed hyperinflation with no active cardiopulmonary disease. Also had a cervical spine x-ray in the ER, which showed fusion of C5 to C7 with intact hardware. The patient's symptoms were consistent with TIA. The patient was seen in consultation by Dr. Cayetano Hernandez, neurologist and he thought that her symptoms were consistent with TIA to the left MCA vascular distribution. She was noted not to be a candidate for tPA or mechanical thrombectomy given that her NIH Stroke Scale was 0. Complex migraine with headaches was also considered. The patient has a history of miscarriages and unexplained PE, which did raise suspicion for underlying antiphospholipid syndrome. The patient also reports a family history of blood clots and stroke. An MRI was recommended as discussed above. Neuro checks were instituted. He recommended the patient start on aspirin and Plavix and recommended a combination dual antiplatelet therapy for 21 days and then to discontinue Plavix on 07/30/19 and continue on baby aspirin. The patient was also started on atorvastatin 40 mg daily and TSH, B12 , Lyme titer, and hemoglobin A1c were ordered. The patient's Lyme titer is currently pending and the patient to follow this up as an outpatient as the patient does have tick exposure. In light of her family history, miscarriages, and pulmonary embolus in the past, hypercoagulability workup would be appropriate and this has been discussed with the patient and to be pursued as an outpatient. The patient reports that she would follow up with Dr. Lawton as an outpatient. Echocardiogram was also obtained to rule out PFO and atrial septal defect. Her echo from 07/10/19 showed ejection fraction of 55% to 60%. RV systolic function was normal. No patent foramen ovale or atrial septal defect was noted on the bubble study. The patient's neurologic deficits have resolved and the patient noted to be stable at the time of discharge. INSTRUCTIONS AT THE TIME OF DISCHARGE: 1. The patient to continue her aspirin and Plavix for 21 days and the patient to discontinue Plavix on 07/30/19 and continue aspirin after that. 2. The patient to continue atorvastatin 40 mg nightly. 3. TIA education completed. 4. The patient to follow up on pending Lyme screen. 5. Recommend pursuing hypercoagulability workup as an outpatient with primary care or Hematology/Oncology. 6. For her migraine headaches without aura, the patient was given IV magnesium sulfate and Neurology recommends magnesium oxide 400 mg and riboflavin 100 mg daily for 3 to 4 weeks. If the combination does not work and she continues to have frequent headaches, then they recommend Topamax. Also encouraged the patient to keep a headache diary. 7. The patient to follow up with her PCP within a week. 8. The patient also recommended to follow up with her administration physician, Dr. Sharif as an outpatient. MEDICATION LIST AT THE TIME OF DISCHARGE: 1. Calcium carbonate (Tums). 2. Celexa 20 mg daily. 3. Excedrin as needed. 4. Hydrocodone/acetaminophen 1 tab b.i.d. p.r.n. 5. Riboflavin 100 mg daily. 6. Magnesium oxide 400 mg daily. 7. Plavix 75 mg p.o. daily. 8. Atorvastatin 40 mg p.o. daily. 9. Aspirin 81 mg daily. PHYSICAL EXAM AT THE TIME OF DISCHARGE: Vitals: Temperature 97.7, pulse 51, respiratory rate 20, oxygen saturation 99% on room air, blood pressure 129/70. HEENT: NC/AT. Heart: S1, S2 present. Regular at the time of exam. Lungs: Clear to auscultation bilaterally. Abdomen: Soft. Extremities: No edema. Neuro: Alert, oriented x3. No focal deficits. DIAGNOSTIC STUDIES/LAB DATA: EKG: Sinus bradycardia. The patient not noted to experience any heart block during telemetry monitoring. Labs at the time of discharge: WBC 4, hemoglobin 13.7, hematocrit 40, platelets noted to be 238. Sodium 138, potassium 3.9, chloride 105, CO2 of 27, BUN 13, creatinine 0.8. Hemoglobin A1c 5.6. Lipid panel: Triglycerides 142, cholesterol 255, LDL 175, HDL 51. Vitamin B12 354. TSH 2.67. INR 1.01. CONDITION: Stable. DISPOSITION: Home. Instructions as above. The patient to follow up with her PCP as an outpatient, Hematology/per PCP discretion for hypercoagulability workup, Cardiology as an outpatient as the patient noted to have some sinus bradycardia. Echocardiogram has been reviewed. The patient's troponin was noted to be 0. TIME SPENT: Total time spent on discharge is equal to 40 minutes. [id number]/[facility] #: [id number] MTDD
== END 2019-07-12 16:00 | disposition home or self-care (01) ==
LOC: ED 11:56 → MEDTELE 15:16
PROVIDERS: ADMIT Internal Medicine; ATTEND Internal Medicine
DX: G45.9 Transient cerebral ischemic attack, unspecified (principal); E78.5 Hyperlipidemia, unspecified; G43.909 Migraine, unspecified, not intractable, without status migrainosus; Z86.711 Personal history of pulmonary embolism; Z79.82 Long term (current) use of aspirin; Z79.899 Other long term (current) drug therapy; E78.00 Pure hypercholesterolemia, unspecified; F41.9 Anxiety disorder, unspecified; Z87.891 Personal history of nicotine dependence
CPT/HCPCS: 36415; 70496; 70498; 70551; 71045; 72040; 80048; 80053; 80061; 82607; 83036; 83605; 84443; 84484; 85025; 85610; 85730; 86618; 93005; 93304; 96361; 96365; 96366; 99282; A9270-GY; G0378; J3475; Q9967

== ENCOUNTER 2019-07-28 16:41 | Observation (INO) ==
[2019-07-28 17:26] LABS: ABS Lymphocytes 1.9 10^3/ul (1.0-4.8); ABS Monocytes 0.3 10^3/ul (0-0.8); Eosinophil % 0.9 %; Hematocrit 37 % (35-47); Hemoglobin 13.3 g/dL (12.0-16.0); Mean Corpuscular HGB Conc 36 g/dL (31-36); Mean Corpuscular Hemoglobin 33 pg (27-31); Mean Corpuscular Volume 92 fL (80-97); Mean Platelet Volume 7.5 fL (7.4-10.4); Nucleated Red Blood Cells % 0.1; Platelet Count 234 10^3/uL (150-450); Red Blood Count 4.04 10^6 /uL (3.70-4.87); Red Cell Distribution Width 13 % (10-15); White Blood Count 5.2 10^3/uL (3.5-10.8)
[2019-07-28 17:33] LABS: INR 1.06 (0.82-1.09)
[2019-07-28 17:50] LABS: Albumin 4.5 g/dL (3.2-5.2); Albumin/Globulin Ratio 1.7 (1-3); BUN/Creatinine Ratio 19.3 (8-20); Calcium 9.6 mg/dL (8.6-10.3); EGFR African American 86.4 (>60); EGFR Non-African American 71.4 (>60); Globulin 2.6 g/dL (2-4); Magnesium 2.1 mg/dL (1.9-2.7); Potassium 3.8 mmol/L (3.5-5.0); Total Bilirubin 0.4 mg/dL (0.2-1.0); Total Protein 7.1 g/dL (6.4-8.9)
[2019-07-28] MEDS ORDERED: HYDROcodone/ACETAMIN 5/325 mg TAB PO PRN (20:36)
[2019-07-28] MEDS ORDERED: ASA-APAP-CAFFEINE ES (NF) TAB PO PRN (20:36)
[2019-07-28] MEDS ORDERED: Ondansetron 4 mg VIAL 2 MG/ML 2 ml VIAL IV PRN (20:38)
[2019-07-29] MEDS ORDERED: Riboflavin (B2) 100 mg TAB(NF) PO SCH (09:00)
[2019-07-29] MEDS ORDERED: Regadenoson 0.4 MG/5 ML SYRINGE ONE (11:54)
[2019-07-29 13:04] VITALS: BP 112/63
== END 2019-07-29 15:30 | disposition home or self-care (01) ==
LOC: MEDTELE 16:41 → ED 16:41 → MEDTELE 22:40
PROVIDERS: ADMIT Nurse Practitioner Acute Care; ATTEND Internal Medicine